=== PATIENT | female | born 1985 | race African-American/Black ===

== ENCOUNTER 2016-10-05 22:23 | Emergency (ER) | payer SELFPAY ==
--- NOTE | 2016-10-05 23:34 | ER Document Report ---
ED Medical Screen (RME) - General Stated Complaint: PSYCH EVAL Notes: 31 year old female, states she wants to be committed because of "how things are at home". She expresses recent SI and thoughts of self mutilation, reports hx of suicide attempt in 2012. She states she has not killed or hurt herself because of her family. She denies any current symptoms. On no meds. TRAVEL OUTSIDE OF THE [place] IN LAST 30 DAYS: No - Related Data Allergies/Adverse Reactions: acetaminophen [From Vicodin] Adverse Reaction (Mild, Verified 09/03/14 04:17) itching hydrocodone bitartrate [From Vicodin] Adverse Reaction (Mild, Verified 09/03/14 04:17) itching nuts Allergy (Uncoded 09/03/14 04:17) Past Medical History - Past Medical History Cardiac Medical History: Denies: Hx Hypertension, Hx Pulmonary Embolism, Hx Heart Murmur Pulmonary Medical History: Denies: Hx Asthma, Hx Sleep Apnea, Hx Tuberculosis Neurological Medical History: Denies: Hx Cerebrovascular Accident, Hx Seizures Endocrine Medical History: Denies: Hx Hyperthyroidism, Hx Hypothyroidism Renal/ Medical History: Denies: Hx Kidney Stones, Hx Ovarian Cysts, Hx Pelvic Inflammatory Disease Malignancy Medical History: Denies: Hx Breast Cancer, Hx Cervical Cancer, Hx Ovarian Cancer GI Medical History: Reports: Hx Gastroesophageal Reflux Disease. Denies: Hx Hiatal Hernia, Hx Ulcer Musculoskeltal Medical History: Denies Hx Fibromyalgia Psychiatric Medical History: Reports: Hx Anxiety, Hx Bipolar Disorder, Hx Depression Denies: Hx Post Traumatic Stress Disorder, Hx Schizophrenia Traumatic Medical History: Denies: Hx Fractures Infectious Medical History: Denies: Hx HIV Past Surgical History: Reports: Hx Section - x2. Denies: Hx Pacemaker - Immunizations Immunizations up to date: Yes Hx Diphtheria, Pertussis, Tetanus Vaccination: Yes Physical Exam - Vital signs Vitals: Temp Pulse Resp BP Pulse Ox 98.3 F 83 20 106/51 L 96 10/05/16 23:19 10/05/16 23:19 10/05/16 23:19 10/05/16 23:19 10/05/16 23:19 - Cardiovascular Rhythm: Regular. No: Tachycardia Heart sounds: Normal auscultation, S1 appreciated, S2 appreciated Course - Vital Signs Vital signs: Temp Pulse Resp BP Pulse Ox 98.3 F 83 20 106/51 L 96 10/05/16 23:19 10/05/16 23:19 10/05/16 23:19 10/05/16 23:19 10/05/16 23:19
--- NOTE | 2016-10-06 02:28 | ER Document Report ---
ED Psych Disorder / Suicide - General Time seen by provider: :27 Mode of Arrival: Ambulatory Information source: Patient TRAVEL OUTSIDE OF THE [place] IN LAST 30 DAYS: No - HPI Patient complains to provider of: Other - Depression Onset: Other - 2 months Onset was: Gradual Quality of pain: No pain Suicide Risk Factors: Depressed Normal mood: No Associated symptoms: Depressed, Flat affect Similar symptoms previously: Yes Recently seen / treated by doctor: No <SHELTON SCHROEDER - Last Filed: 10/06/16 03:43> <АЛЕКСАНДР MCDANIEL - Last Filed: 10/06/16 11:59> - General Chief Complaint: Psych Problem Stated Complaint: PSYCH EVAL - HPI Notes: Patient is a 31-year-old female who presents to the emergency room requesting mental health evaluation and treatment, patient states ever since her cousin was murdered back in August, she has not felt quite right, she has been struggling with "personal issues, she has had "random thoughts of self-harm", although denies having any thoughts to harm herself at the current time, she reports feeling empty, not eating, feeling stressed out, and has lost some weight, she is not currently in any treatment for this, she does not take any medications, she does smoke, drinks daily and smoked marijuana daily (SHELTON SCHROEDER) - Related Data Allergies/Adverse Reactions: acetaminophen [From Vicodin] Adverse Reaction (Mild, Verified 09/03/14 04:17) itching hydrocodone bitartrate [From Vicodin] Adverse Reaction (Mild, Verified 09/03/14 04:17) itching nuts Allergy (Uncoded 09/03/14 04:17) Home Medications: Current Home Medications No Home Medications 10/06/16 [History] Past Medical History - General Information source: Patient - Social History Smoking Status: Current Every Day Smoker Chew tobacco use (# tins/day): No Frequency of alcohol use: Heavy Drug Abuse: Cocaine, Marijuana Family History: Reviewed & Not Pertinent Patient has suicidal ideation: No - not currently,has in past Patient has homicidal ideation: No - not currently, has in past - Past Medical History Cardiac Medical History: Denies: Hx Hypertension, Hx Pulmonary Embolism, Hx Heart Murmur Pulmonary Medical History: Denies: Hx Asthma, Hx Sleep Apnea, Hx Tuberculosis Neurological Medical History: Denies: Hx Cerebrovascular Accident, Hx Seizures Endocrine Medical History: Denies: Hx Hyperthyroidism, Hx Hypothyroidism Renal/ Medical History: Denies: Hx Kidney Stones, Hx Ovarian Cysts, Hx Peritoneal Dialysis, Hx Pelvic Inflammatory Disease Malignancy Medical History: Denies: Hx Breast Cancer, Hx Cervical Cancer, Hx Ovarian Cancer GI Medical History: Reports: Hx Gastroesophageal Reflux Disease. Denies: Hx Hiatal Hernia, Hx Ulcer Musculoskeltal Medical History: Denies Hx Fibromyalgia Psychiatric Medical History: Reports: Hx Anxiety, Hx Bipolar Disorder, Hx Depression Denies: Hx Post Traumatic Stress Disorder, Hx Schizophrenia Traumatic Medical History: Denies: Hx Fractures Infectious Medical History: Denies: Hx HIV Past Surgical History: Reports: Hx Section - x2. Denies: Hx Pacemaker - Immunizations Immunizations up to date: Yes Hx Diphtheria, Pertussis, Tetanus Vaccination: Yes <SHELTON SCHROEDER - Last Filed: 10/06/16 03:43> Review of Systems - Review of Systems Constitutional: No symptoms reported EENT: No symptoms reported Cardiovascular: No symptoms reported Respiratory: No symptoms reported Gastrointestinal: No symptoms reported Genitourinary: No symptoms reported Female Genitourinary: No symptoms reported Musculoskeletal: No symptoms reported Skin: No symptoms reported Hematologic/Lymphatic: No symptoms reported Neurological/Psychological: See HPI -: Yes All other systems reviewed and negative <SHELTON SCHROEDER - Last Filed: 10/06/16 03:43> Physical Exam - Vital signs Interpretation: Normal <SHELTON SCHROEDER - Last Filed: 10/06/16 03:43> <АЛЕКСАНДР MCDANIEL - Last Filed: 10/06/16 11:59> - Vital signs Vitals: Temp Pulse Resp BP Pulse Ox 98.3 F 83 20 106/51 L 96 10/05/16 23:19 10/05/16 23:19 10/05/16 23:19 10/05/16 23:19 10/05/16 23:19 - Notes Notes: - General General appearance: Appears well, Alert In distress: None - HEENT Head: Normocephalic, Atraumatic Eyes: Normal Conjunctiva: Normal Extraocular movements intact: Yes Eyelashes: Normal Pupils: PERRL - Respiratory Respiratory status: No respiratory distress - Cardiovascular Rhythm: Regular - Abdominal Inspection: Normal - Back Back: Normal - Extremities General upper extremity: Normal inspection General lower extremity: Normal inspection - Neurological Neuro grossly intact: Yes Orientation: AAOx4 Melissa Coma Scale Eye Opening: Spontaneous Worthing Coma Scale Verbal: Oriented Worthing Coma Scale Motor: Obeys Commands Melissa Coma Scale Total: 15 - Psychological Associated symptoms: Depressed mood, flat affect, poor eye contact - Skin Skin Temperature: Warm Skin Moisture: Dry Skin Color: Normal (SHELTON SCHROEDER) Course - EKG Interpretation by Me EKG shows normal: Sinus rhythm Rate: Normal Rhythm: NSR <SHELTON SCHROEDER - Last Filed: 10/06/16 03:43> - Laboratory Result Diagrams: 10/06/16 03:40 10/06/16 03:40 <АЛЕКСАНДР MCDANIEL - Last Filed: 10/06/16 11:59> - Re-evaluation Re-evalutation: 10/06/16 03:38 Patient presents to the emergency room requesting mental health evaluation and treatment, she denies any active suicidal ideation or intent for self-harm, therefore she will remain in the emergency room as a voluntary patient for further evaluation and treatment by the mental health team (SHELTON SCHROEDER) - Vital Signs Vital signs: Temp Pulse Resp BP Pulse Ox 98.0 F 70 16 106/50 L 100 10/06/16 11:39 10/06/16 11:39 10/06/16 11:39 10/06/16 11:39 10/06/16 11:39 - Laboratory Laboratory results interpreted by me: 10/06/16 10/06/16 10/06/16 03:40 03:40 10:35 RDW 14.1 H Seg Neutrophils % 27.2 L Lymphocytes % 56.2 H Eosinophils % 8.6 H Urine Protein 30 H Urine Ketones TRACE H Urine Urobilinogen 4.0 H Salicylates < 1.0 L Acetaminophen < 10 L Discharge <SHELTON SCHROEDER - Last Filed: 10/06/16 03:43> <АЛЕКСАНДР MCDANIEL - Last Filed: 10/06/16 11:59> - Discharge Clinical Impression: Suicidal ideation Depression Qualifiers: Depression Type: unspecified Qualified Code(s): F32.9 - Major depressive disorder, single episode, unspecified Condition: Stable Disposition: HOME, SELF-CARE Additional Instructions: DEPRESSION: Your evaluation reveals that you have mental depression. While symptoms may be vague, they often include disturbance of sleep, fatigue, loss of appetite , and general loss of interest in life. While depression may be a side effect of drugs, or a reaction to a major change in your life, many cases have no known cause. If depression is acute, and related to a major loss in your life, you can expect it to clear completely with time. If you have been depressed a long time , are prone to repeated bouts of depression or low mood, or have been thinking of suicide, get help. Depression can be treated with anti-depressant medication and counselling. Long-term depression will often take a few weeks to clear, even with appropriate medication. Follow-up care is important. SUICIDAL IDEATION: Suicidal ideation is a common medical term for thoughts about suicide, which may be as detailed as a formulated plan, without the suicidal act itself. Although most people who undergo suicidal ideation do not commit suicide, some go on to make suicide attempts. The range of suicidal ideation varies greatly from fleeting to detailed planning, role playing, and unsuccessful attempts. While thoughts about suicide are common, most people do not carry out serious actions to commit suicide. Based upon your evaluation and discussion with you, we do not believe you are currently at risk to act upon your thoughts of suicide. You have agreed to return to the Emergency Department, at any time , if you feel inclined to act upon your suicidal thoughts. FOLLOW-UP CARE: If you have been referred to a physician for follow-up care, call the physician s office for an appointment as you were instructed or within the next two days. If you experience worsening or a significant change in your symptoms, notify the physician immediately or return to the Emergency Department at any time for re-evaluation. You are advised to follow-up at [facility] at 1 PM today. Referrals: [facility] Luis Manuel [Provider Group] - 10/06/16 1:00 pm
[2016-10-06] MEDS ORDERED: DIPHENHYDRAMINE HCL 50 MG CAPSULE PO ONE (02:56)
[2016-10-06 03:48] LABS: ABSOLUTE BASOPHILS # (AUTO) 0.1 10^3/uL (0.0-0.2); ABSOLUTE EOSINOPHILS # (AUTO) 0.6 10^3/uL (0.0-0.6); ABSOLUTE MONOCYTES (AUTO) 0.5 10^3/uL (0.1-1.4); ABSOLUTE NEUT (AUTO) 1.9 10^3/uL (1.7-8.2); BASOPHILS % (AUTO) 0.9 % (0-2); EOSINOPHILS % (AUTO) 8.6 % (0-6); HEMATOCRIT 41.2 % (36.0-47.0); HEMOGLOBIN 13.4 g/dL (12.0-15.5); LYMPHOCYTES % (AUTO) 56.2 % (13-45); MEAN CORPUSCULAR HGB CONC 32.6 g/dL (32.0-36.0); MEAN CORPUSCULAR VOLUME 86 fl (80-97); MONOCYTES % (AUTO) 7.1 % (3-13); RED BLOOD COUNT 4.78 10^6/uL (3.72-5.28); RED CELL DISTRIBUTION WIDTH 14.1 % (11.5-14.0); SEGMENTED NEUTROPHILS % (AUTO) 27.2 % (42-78); WHITE BLOOD COUNT 7.1 10^3/uL (4.0-10.5)
[2016-10-06 04:01] LABS: ALANINE AMINOTRANSFERASE 27 U/L (9-52); ALBUMIN 4.2 g/dL (3.5-5.0); ALKALINE PHOSPHATASE 65 U/L (38-126); ANION GAP 11 (5-19); ASPARTATE AMINO TRANSFERASE 14 U/L (14-36); BILIRUBIN,TOTAL 0.3 mg/dL (0.2-1.3); BLOOD UREA NITROGEN 7 mg/dL (7-20); CALCIUM 9.6 mg/dL (8.4-10.2); CARBON DIOXIDE 24 mmol/L (22-30); CHLORIDE 106 mmol/L (98-107); CREATININE RESULT 1.01 mg/dL (0.52-1.25); GLUCOSE 78 mg/dL (75-110); SODIUM 140.7 mmol/L (137-145); TOTAL PROTEIN 6.9 g/dL (6.3-8.2)
[2016-10-06 04:03] LABS: ALCOHOL < 10 mg/dL (NONE DETECTED)
--- NOTE | 2016-10-06 08:31 | EKG REPORT ---
SEVERITY:- OTHERWISE NORMAL ECG - SINUS ARRHYTHMIA, RATE [id number] : Confirmed by: Lokesh Key MD 06-Oct-2016 08:31:23
--- NOTE | 2016-10-06 08:55 | PSYCHOLOGICAL NOTE ---
Psych Note - Psych Note Psych Note: Patient presented to [facility] ED requesting mental health evaluation and treatment, patient states ever since her cousin was murdered back in August, she has not felt quite right, she has been struggling with "personal issues, she has had "random thoughts of self-harm", although denies having any thoughts to harm herself at the current time, she reports feeling empty, not eating, feeling stressed out, and has lost some weight, she is not currently in any treatment for this, she does not take any medications, she does smoke, drinks daily and smoked marijuana daily. Patient disclosed that she has not been taking any medication since May because her Medicaid was discontinued; however when she was taking her medication she did not feel "right" and thinks that she might have been on the wrong medications. Her previous provider was sees [facility]. Patient continued disclosed that she did attempt to go to [facility] however was unable to do the group therapies because of no transportation at the time. She continue disclose that she now has the vehicle and was going to go to [facility] today. Patient disclosed that she has been diagnosed with bipolar and PTSD however symptoms became overwhelming after her cousin was murdered on August 14 of this year. She continued disclosed she keeps seeing him in his casket and almost wishes that she did not attend services. She continued to disclose that she has attempted to keep together for her children however everything is a chore. 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 Patient denies suicidal or homicidal ideation but disclosed that she does have a history of self-harm. Patient denies current use of her maladaptive coping skill in self-harm. Patient's mother, Verito, stated she has concerns for the patient because she has been impulsive, defensive and argumentative. She has noticed increase in use of narcotics and feels like the patient has been moving backwards. She confirmed causing of the patient did pass away in August. She disclosed that the patient started to show symptoms about May but that it has gotten worse. Patient is alert and orientated to person place time and circumstance. Mood is dysphoric with flat affect. Patient denies suicidal homicidal ideation; does have history of self-harm for maladaptive coping skill. Patient denies auditory and visual hallucinations; no delusions are noted. Thought process is logical organized and linear. Conversational speech is low however within normal rate and prosody. Eye contact was fair. Intellectual abilities appear to be within average range. Attention and concentration are fair. Insight, judgment, impulse control are good. 296.80 (F31.9) Unspecified Bipolar and Related Disorder per history per patient 309.9 (F43.9) Unspecified truama and stressor related disorder per history per patient impression/plan: Patient is considered psychiatrically clear for discharge. Patient denies suicidal and homicidal ideation and does not meet criteria for IVC per [place] GS 122 C. Patient does have a history of self-harm however has not resorted to her maladaptive coping skill as evidenced by no new santamaria cuts or bruises observed. Patient is reaching out for assistance because of past difficulties in losing insurance and has not been going to mental health services since May. Patient did attend [facility] and is going to be following up with them today at 1:00. Patient is psychiatrically cleared for discharge attending physician is in agreement with recommendations and disposition.
[2016-10-06 10:52] LABS: APPEARANCE,URINE SLIGHTLY-CLOUDY; BILIRUBIN,URINE NEGATIVE (NEGATIVE); GLUCOSE, URINE NEGATIVE (NEGATIVE); KETONES,URINE TRACE mg/dL (NEGATIVE); LEUKOCYTE ESTERASE,URINE NEGATIVE (NEGATIVE); NITRITE,URINE NEGATIVE (NEGATIVE); PROTEIN,URINE 30 mg/dL (NEGATIVE); URINE SPECIFIC GRAVITY 1.028
[2016-10-06 11:09] LABS: URINE BARBITURATES SCREEN NEGATIVE; URINE METHADONE SCREEN NEGATIVE; URINE OPIATES LOW NEGATIVE; URINE PHENCYCLIDINE SCREEN NEGATIVE
[2016-10-06 11:40] VITALS: BP 106/50
--- NOTE | 2016-10-06 12:00 | ER Document Report ---
Doctor's Note Notes: 10/06/16 12:00 Rounds: Chart reviewed and patient was interviewed. Patient denies feeling suicidal at this time. Vital signs are all essentially normal. Lab studies are also all essentially normal. Patient appears to be medically stable for transfer or discharge. Mental health has assessed the patient feels she can be discharged for outpatient follow-up at [facility] at 1 PM today. Ricci Temple M.D.
== END 2016-10-06 11:40 | disposition home or self-care (01) ==
LOC: ER 22:23
DX: F32.9 Major depressive disorder, single episode, unspecified (principal); R45.851 Suicidal ideations; F17.200 Nicotine dependence, unspecified, uncomplicated; R63.4 Abnormal weight loss; Z68.23 Body mass index [BMI] 23.0-23.9, adult; Z91.018 Allergy to other foods
CPT/HCPCS: 36415; 80053; 80307; 81001; 84703; 85025; 93005; 93010; 99285

== ENCOUNTER 2016-10-26 13:46 | Emergency (ER) | payer SELFPAY ==
[2016-10-26 13:52] VITALS: BP 150/90
[2016-10-26] MEDS ORDERED: IBUPROFEN 800 MG TABLET PO ONE (14:08)
--- NOTE | 2016-10-26 14:10 | ER Document Report ---
ED Medical Screen (RME) - General Stated Complaint: TOOTHACHE Notes: She complains of right upper dental pain that has been going on for a while. It has gotten worse over the last few days, sensitive to hot and cold foods. I have greeted and performed a rapid initial assessment of this patient. A comprehensive ED assessment and evaluation of the patient, analysis of test results and completion of the medical decision making process will be conducted by additional ED providers. TRAVEL OUTSIDE OF THE [place] IN LAST 30 DAYS: No - Related Data Allergies/Adverse Reactions: acetaminophen [From Vicodin] Adverse Reaction (Mild, Verified 10/26/16 14:07) itching hydrocodone bitartrate [From Vicodin] Adverse Reaction (Mild, Verified 10/26/16 14:07) itching nuts Allergy (Uncoded 10/26/16 14:07) Past Medical History - Past Medical History Cardiac Medical History: Denies: Hx Hypertension, Hx Pulmonary Embolism, Hx Heart Murmur Pulmonary Medical History: Denies: Hx Asthma, Hx Sleep Apnea, Hx Tuberculosis Neurological Medical History: Denies: Hx Cerebrovascular Accident, Hx Seizures Endocrine Medical History: Denies: Hx Hyperthyroidism, Hx Hypothyroidism Renal/ Medical History: Denies: Hx Kidney Stones, Hx Ovarian Cysts, Hx Peritoneal Dialysis, Hx Pelvic Inflammatory Disease Malignancy Medical History: Denies: Hx Breast Cancer, Hx Cervical Cancer, Hx Ovarian Cancer GI Medical History: Reports: Hx Gastroesophageal Reflux Disease. Denies: Hx Hiatal Hernia, Hx Ulcer Musculoskeltal Medical History: Denies Hx Fibromyalgia Psychiatric Medical History: Reports: Hx Anxiety, Hx Bipolar Disorder, Hx Depression Denies: Hx Post Traumatic Stress Disorder, Hx Schizophrenia Traumatic Medical History: Denies: Hx Fractures Infectious Medical History: Denies: Hx HIV Past Surgical History: Reports: Hx Section - x2. Denies: Hx Pacemaker - Immunizations Immunizations up to date: Yes Hx Diphtheria, Pertussis, Tetanus Vaccination: Yes Physical Exam - Vital signs Vitals: Temp Pulse Resp BP Pulse Ox 98.5 F 99 18 150/90 H 98 10/26/16 13:51 10/26/16 13:51 10/26/16 13:51 10/26/16 13:51 10/26/16 13:51 - HEENT Teeth diagram: 1 - decayed and broken tooth. Course - Vital Signs Vital signs: Temp Pulse Resp BP Pulse Ox 98.5 F 99 18 150/90 H 98 10/26/16 13:51 10/26/16 13:51 10/26/16 13:51 10/26/16 13:51 10/26/16 13:51
--- NOTE | 2016-10-26 15:00 | ER Document Report ---
HPI - HPI Patient complains to provider of: dental pain and decay Onset: Other Onset/Duration: Gradual - A week Quality of pain: Throbbing Pain Level: 5 Context: 31-year-old female with has a partial plate is complaining of increased dental pain and decay and irritation from her partial frontal plate. No Fever or facial swelling. Associated Symptoms: None Exacerbated by: Other - Partial plate Relieved by: Denies Similar symptoms previously: No Recently seen / treated by doctor: No - ROS ROS below otherwise negative: Yes Systems Reviewed and Negative: Yes All other systems reviewed and negative - REPRODUCTIVE Reproductive: DENIES: : - DERM Skin Color: Normal Past Medical History - General Information source: Patient - Social History Smoking Status: Current Every Day Smoker Chew tobacco use (# tins/day): No Frequency of alcohol use: None Drug Abuse: None Lives with: Family Family History: Reviewed & Not Pertinent Patient has suicidal ideation: No Patient has homicidal ideation: No GI Medical History: Reports: Hx Gastroesophageal Reflux Disease Psychiatric Medical History: Reports: Hx Anxiety, Hx Bipolar Disorder, Hx Depression Past Surgical History: Reports: Hx Section - x2, Hx Pacemaker - Immunizations Immunizations up to date: Yes Hx Diphtheria, Pertussis, Tetanus Vaccination: Yes Vertical Provider Document - CONSTITUTIONAL Agree With Documented VS: Yes Exam Limitations: No Limitations - INFECTION CONTROL TRAVEL OUTSIDE OF THE [place] IN LAST 30 DAYS: No - HEENT HEENT: Atraumatic, Normocephalic Notes: few decayed teeth, hard palate behind the teeth inflamed, no abscess - NECK Neck: Supple. negative: Lymphadenopathy-Left, Lymphadenopathy-Right - RESPIRATORY Respiratory: Breath Sounds Normal, No Respiratory Distress O2 Sat by Pulse Oximetry: 98 - CARDIOVASCULAR Cardiovascular: Regular Rate, Regular Rhythm - NEURO Level of Consciousness: Awake, Alert, Appropriate - DERM Integumentary: Warm, Dry Course - Vital Signs Vital signs: Temp Pulse Resp BP Pulse Ox 98.5 F 99 18 150/90 H 98 10/26/16 13:51 10/26/16 13:51 10/26/16 13:51 10/26/16 13:51 10/26/16 13:51 Discharge - Discharge Clinical Impression: dental pain and decay Condition: Good Disposition: HOME, SELF-CARE Instructions: Penicillin V K ([facility]), Toothache ([facility]), Acetaminophen, Anti- Inflammatory Medication ([facility]), Dentist, Dental Infection or Abscess ([facility]) Additional Instructions: warm compress to er if worse see the dentist Please complete the patient satisfaction survey if you get one, and return it.. If you do not receive a survey, then you can go to the [facility] website, [email or web address] and place your comments about your very good care. Thank you very much. It was a pleasure being your medical provider today. Prescriptions: Ibuprofen [Motrin 800 mg Tablet] 800 mg PO Q8HP PRN #30 tablet PRN Reason: Penicillin V Potassium [Penicillin Vk 500 mg Tablet] 500 mg PO QID #40 tablet
== END 2016-10-26 15:28 | disposition home or self-care (01) ==
LOC: ER 13:46
DX: K08.89 Other specified disorders of teeth and supporting structures (principal); K02.9 Dental caries, unspecified; F17.200 Nicotine dependence, unspecified, uncomplicated
CPT/HCPCS: 99282

== ENCOUNTER 2016-11-21 19:20 | Emergency (ER) | payer SELFPAY ==
[2016-11-21] MEDS ORDERED: PROMETHAZINE HCL 25 MG TABLET PO ONE (19:43)
[2016-11-21] MEDS ORDERED: OXYCODONE-ACETAMINOPHEN 5-325 MG TABLET PO ONE (19:43)
--- NOTE | 2016-11-21 19:48 | ER Document Report ---
ED Medical Screen (RME) - General Chief Complaint: Abdominal Pain Stated Complaint: ABDOMINAL PIERCING PAIN Notes: Patient says that she's been having pain in her right upper quadrant since awakening this morning. She thinks the pain actually helped awaken her. The pain is been constant all day. She's been nauseated but hasn't vomited. She has had 5-6 episodes of diarrhea. It cordero when she urinates. No cough or cold or chest congestion. Unaware of any fevers. Patient has a control implant. Last cycle was September, but she is often irregular with the implant. She's had 3 C-sections but no other surgical procedures. PMH: Bipolar disorder Exam of patient while sitting in a chair in triage reveals tenderness throughout , but more so on the right side and more so at the umbilical level are slightly higher on the right side. Not the most tender over the region of the appendix at McBurney's point. TRAVEL OUTSIDE OF THE [place] IN LAST 30 DAYS: No - Related Data Allergies/Adverse Reactions: acetaminophen [From Vicodin] Adverse Reaction (Mild, Verified 10/26/16 14:07) itching hydrocodone bitartrate [From Vicodin] Adverse Reaction (Mild, Verified 10/26/16 14:07) itching nuts Allergy (Uncoded 10/26/16 14:07) Past Medical History - Past Medical History Cardiac Medical History: Denies: Hx Hypertension, Hx Pulmonary Embolism, Hx Heart Murmur Pulmonary Medical History: Denies: Hx Asthma, Hx Sleep Apnea, Hx Tuberculosis Neurological Medical History: Denies: Hx Cerebrovascular Accident, Hx Seizures Endocrine Medical History: Denies: Hx Hyperthyroidism, Hx Hypothyroidism Renal/ Medical History: Denies: Hx Kidney Stones, Hx Ovarian Cysts, Hx Peritoneal Dialysis, Hx Pelvic Inflammatory Disease Malignancy Medical History: Denies: Hx Breast Cancer, Hx Cervical Cancer, Hx Ovarian Cancer GI Medical History: Reports: Hx Gastroesophageal Reflux Disease. Denies: Hx Hiatal Hernia, Hx Ulcer Musculoskeltal Medical History: Denies Hx Fibromyalgia Psychiatric Medical History: Reports: Hx Anxiety, Hx Bipolar Disorder, Hx Depression Denies: Hx Post Traumatic Stress Disorder, Hx Schizophrenia Traumatic Medical History: Denies: Hx Fractures Infectious Medical History: Denies: Hx HIV Past Surgical History: Reports: Hx Section - x2, Hx Pacemaker - Immunizations Immunizations up to date: Yes Hx Diphtheria, Pertussis, Tetanus Vaccination: Yes
[2016-11-21] MEDS ORDERED: KETOROLAC TROMETHAMINE 60 MG/2 ML SDV IM ONE (20:23)
--- NOTE | 2016-11-21 20:23 | ER Document Report ---
ED GI/ - General Mode of Arrival: Ambulatory Information source: Patient TRAVEL OUTSIDE OF THE [place] IN LAST 30 DAYS: No - HPI Patient complains to provider of: Abdominal pain Associated symptoms: Other - See above <MARLENE GALAN - Last Filed: 11/21/16 21:47> <KIKA BRAVO - Last Filed: 11/23/16 21:10> - General Chief Complaint: Abdominal Pain Stated Complaint: ABDOMINAL PIERCING PAIN Notes: Patient is a 31 year old female, with a past medical history including bipolar disorder, who presents to the the emergency department complaining of abdominal pain that woke her up at 0830 this morning. Patient states the pain is worst in her right abdomen and is exacerbated by movement and pressure. Patient also complains of diarrhea, nausea, and mild vaginal discharge onset 2 days ago. Patient states she also had a fever of 101 earlier today and took Tylenol. Patient denies vaginal bleeding, vaginal odor, and pain with intercourse. Patient denies and states she is has a nexplanon implant although she reports she has had 4 miscarriages with the implant. PCP: [facility] (MARLENE GALAN) - Related Data Allergies/Adverse Reactions: acetaminophen [From Vicodin] Adverse Reaction (Mild, Verified 10/26/16 14:07) itching hydrocodone bitartrate [From Vicodin] Adverse Reaction (Mild, Verified 10/26/16 14:07) itching nuts Allergy (Uncoded 10/26/16 14:07) Past Medical History - General Information source: Patient - Social History Smoking Status: Unknown if Ever Smoked Family History: Reviewed & Not Pertinent Patient has suicidal ideation: No GI Medical History: Reports: Hx Gastroesophageal Reflux Disease Psychiatric Medical History: Reports: Hx Anxiety, Hx Bipolar Disorder, Hx Depression Past Surgical History: Reports: Hx Section - x2, Hx Pacemaker - Immunizations Immunizations up to date: Yes Hx Diphtheria, Pertussis, Tetanus Vaccination: Yes <MARLENE GALAN - Last Filed: 11/21/16 21:47> Review of Systems - Review of Systems Constitutional: See HPI, Fever EENT: No symptoms reported Cardiovascular: No symptoms reported Respiratory: No symptoms reported Gastrointestinal: See HPI, Abdominal pain, Diarrhea, Nausea Genitourinary: No symptoms reported Female Genitourinary: See HPI, Vaginal discharge. denies: Vaginal bleeding, Vaginal odor, Painful intercourse Musculoskeletal: No symptoms reported Skin: No symptoms reported Hematologic/Lymphatic: No symptoms reported Neurological/Psychological: No symptoms reported -: Yes All other systems reviewed and negative <MARLENE GALAN - Last Filed: 11/21/16 21:47> Physical Exam - Vital signs Interpretation: Normal - General General appearance: Appears well, Alert - HEENT Head: Normocephalic, Atraumatic - Respiratory Respiratory status: No respiratory distress Chest status: Nontender Breath sounds: Normal Chest palpation: Normal - Cardiovascular Rhythm: Regular Heart sounds: Normal auscultation Murmur: No - Abdominal Inspection: Normal Distension: No distension Bowel sounds: Normal Tenderness: Other - Patient presents with guarding before palpation and sits up with no difficulty during exam despite complaints that her pain is severe. Patient presents with diffuse pain during examinaton, and pain is out of proportion to exam. Organomegaly: No organomegaly - Extremities General upper extremity: Normal inspection, Normal ROM, Normal strength General lower extremity: Normal inspection, Normal ROM, Normal strength, Normal weight bearing - Neurological Neuro grossly intact: Yes Cognition: Normal Orientation: AAOx4 Melissa Coma Scale Eye Opening: Spontaneous [place] Coma Scale Verbal: Oriented [place] Coma Scale Motor: Obeys Commands Melissa Coma Scale Total: 15 Speech: Normal Motor strength normal: LUE, RUE, LLE, RLE - Psychological Associated symptoms: Normal affect, Normal mood - Skin Skin Temperature: Warm Skin Moisture: Dry Skin Color: Normal <MARLENE GALAN - Last Filed: 11/21/16 21:47> Course - Laboratory Result Diagrams: 11/21/16 20:35 11/21/16 20:35 <MARLENE GALAN - Last Filed: 11/21/16 21:47> - Laboratory Result Diagrams: 11/21/16 20:35 11/21/16 20:35 <KIKA BRAVO - Last Filed: 11/23/16 21:10> - Re-evaluation Re-evalutation: 11/22/16 02:18 Patient presented to the emergency department with generalized abdominal pain onset this morning associated with diarrhea. Said she's had a normal appetite. Denies any vaginal discharge bleeding or painful intercourse. States she does have a history of chlamydia. She was at the bedside with for very young children which by herself. Initially rating give her some for pain outfront that she did not have anyone for the children. On examination her pain is not consistent with her exam before a limp with the dumont the stethoscope to listen she is writhing around in pain but witnessed prior to and after taxing on the cell phone in no acute distress. I palpate her abdomen barely touch it the pain is out of proportion to physical examination no associated guarding rebound rigidity. She has a mildly elevated white blood cell count negative acute CT findings small slight urinary tract infection. Patient is positive for cocaine and marijuana. Children's services were notified in regards to the small children N of present states that it wasn't emergent that they see them tonight dental follow-up as an outpatient. This time she is to be discharge follow-up with primary care physician in 12-24 hour recheck and reevaluation and discussed reasons for ED return sooner (KIKA BRAVO) - Vital Signs Vital signs: Temp Pulse Resp BP Pulse Ox 97.7 F 64 16 102/67 99 11/22/16 02:33 11/22/16 02:33 11/22/16 02:33 11/22/16 02:33 11/22/16 02:33 - Laboratory Laboratory results interpreted by me: 11/21/16 11/21/16 20:35 21:00 WBC 16.5 H RDW 14.2 H Absolute Neutrophils 12.3 H Urine Urobilinogen 4.0 H Ur Leukocyte Esterase SMALL H Discharge <MARLENE GALAN - Last Filed: 11/21/16 21:47> <KIKA BRAVO - Last Filed: 11/23/16 21:10> - Discharge Clinical Impression: Cocaine abuse, Tetrahydrocannabinol (THC) use disorder, mild, abuse Abdominal pain Qualifiers: Abdominal location: unspecified location Qualified Code(s): R10.9 - Unspecified abdominal pain Condition: Stable Disposition: HOME, SELF-CARE Instructions: Abdominal Pain ([facility]) Additional Instructions: Abdominal Pain There are many causes of abdominal pain. Pain can mean a serious problem requiring surgery (such as appendicitis). It can also be an innocent problem that goes away on its own (such as a viral infection). Often, time must pass to determine the cause of pain. The physician does not feel that hospitalization is necessary, at present. Things may change within the next 24 hours. Call the doctor or come back for re- examination if any problems occur, such as: (1) Pain that becomes more severe, steady, or becomes concentrated in one specific area. Also, pain that is more severe with movement or coughing. (2) Vomiting that persists or becomes more frequent. (3) Blood in the vomitus, urine, or bowel movements. Blood in the stool may have a tarry or black appearance. (4) Shaking chills or fever greater than 100 degrees F. (5) The abdomen becomes more distended or swollen. (6) Bowel movements cease. (7) Failure to improve as expected. Follow-up in the emergency department for recheck and reevaluation in 12 hours return for increasing worsening or new symptoms Prescriptions: Nitrofurantoin/Nitrofuran Mac [Macrobid 100 mg Capsule] 1 tab PO BID #20 capsule Scribe Attestation: 11/23/16 21:09 i personally performed the services described in the documentation, reviewed the documentation recorded by the scribe in my presence and it accurately and completely records my words and actions. (KIKA BRAVO) Scribe Documentation - Scribe Written by Shaniqua:: shaniqua Jenkins, 11/21/16, 985 acting as scribe for :: Parker <MARLENE GALAN - Last Filed: 11/21/16 21:47>
[2016-11-21 20:46] LABS: ABSOLUTE EOSINOPHILS # (AUTO) 0.1 10^3/uL (0.0-0.6); ABSOLUTE MONOCYTES (AUTO) 1.1 10^3/uL (0.1-1.4); ABSOLUTE NEUT (AUTO) 12.3 10^3/uL (1.7-8.2); BASOPHILS % (AUTO) 0.3 % (0-2); EOSINOPHILS % (AUTO) 0.5 % (0-6); HEMATOCRIT 39.9 % (36.0-47.0); HEMOGLOBIN 12.9 g/dL (12.0-15.5); HGB HCT DIFFERENCE -1.2; LYMPHOCYTES % (AUTO) 18.2 % (13-45); MEAN CORPUSCULAR HEMOGLOBIN 27.8 pg (27.0-33.4); MEAN CORPUSCULAR HGB CONC 32.3 g/dL (32.0-36.0); MEAN CORPUSCULAR VOLUME 86 fl (80-97); MONOCYTES % (AUTO) 6.6 % (3-13); RED BLOOD COUNT 4.64 10^6/uL (3.72-5.28); RED CELL DISTRIBUTION WIDTH 14.2 % (11.5-14.0); SEGMENTED NEUTROPHILS % (AUTO) 74.4 % (42-78); WHITE BLOOD COUNT 16.5 10^3/uL (4.0-10.5)
[2016-11-21 21:09] LABS: ALANINE AMINOTRANSFERASE 29 U/L (9-52); ALKALINE PHOSPHATASE 60 U/L (38-126); ANION GAP 13 (5-19); ASPARTATE AMINO TRANSFERASE 22 U/L (14-36); BILIRUBIN,DIRECT 0.3 mg/dL (0.0-0.4); BILIRUBIN,TOTAL 0.6 mg/dL (0.2-1.3); BLOOD UREA NITROGEN 9 mg/dL (7-20); CALCIUM 9.4 mg/dL (8.4-10.2); CARBON DIOXIDE 23 mmol/L (22-30); CHLORIDE 105 mmol/L (98-107); CREATININE RESULT 0.84 mg/dL (0.52-1.25); GLUCOSE 85 mg/dL (75-110); LIPASE 37.7 U/L (23-300); POTASSIUM 4.2 mmol/L (3.6-5.0); SODIUM 140.8 mmol/L (137-145); TOTAL PROTEIN 6.9 g/dL (6.3-8.2)
[2016-11-21 21:13] LABS: APPEARANCE,URINE SLIGHTLY-CLOUDY; BILIRUBIN,URINE NEGATIVE (NEGATIVE); GLUCOSE, URINE NEGATIVE (NEGATIVE); KETONES,URINE NEGATIVE (NEGATIVE); LEUKOCYTE ESTERASE,URINE SMALL (NEGATIVE); NITRITE,URINE NEGATIVE (NEGATIVE); PROTEIN,URINE NEGATIVE (NEGATIVE); URINE SPECIFIC GRAVITY 1.012
[2016-11-21 21:27] LABS: URINE BARBITURATES SCREEN NEGATIVE; URINE METHADONE SCREEN NEGATIVE; URINE OPIATES LOW NEGATIVE; URINE PHENCYCLIDINE SCREEN NEGATIVE
[2016-11-22 02:37] VITALS: BP 102/67
== END 2016-11-22 02:38 | disposition home or self-care (01) ==
LOC: ER 19:20
DX: N39.0 Urinary tract infection, site not specified (principal); R10.84 Generalized abdominal pain; F12.10 Cannabis abuse, uncomplicated; F14.10 Cocaine abuse, uncomplicated; R19.7 Diarrhea, unspecified; R11.0 Nausea; R50.9 Fever, unspecified; D72.829 Elevated white blood cell count, unspecified; Z97.5 Presence of (intrauterine) contraceptive device; Z87.59 Personal history of other complications of pregnancy, childbirth and the puerperium; Z91.018 Allergy to other foods; Z87.19 Personal history of other diseases of the digestive system; Z95.0 Presence of cardiac pacemaker; Z86.19 Personal history of other infectious and parasitic diseases
CPT/HCPCS: 99284; 96372; 36415; 83690; 84703; 85025; 80053; 81001; 80307; 74176; J1885

== ENCOUNTER 2016-12-27 03:50 | Emergency (ER) | payer SELFPAY ==
[2016-12-27] MEDS ORDERED: BUPIVACAINE HCL 0.5%-EPI 1:200000 INJ/PF 30 ML VIAL INJ ONE (06:35)
--- NOTE | 2016-12-27 07:02 | ER Document Report ---
ED General - General Chief Complaint: Toothache Stated Complaint: TOOTHPAIN Time Seen by Provider: 12/27/16 06:20 Mode of Arrival: Ambulatory Information source: Patient Notes: 31-year-old female presents with complaints of dry socket, she had a tooth pulled 1 week ago has been smoking. Patient denies any fevers or chills nausea vomiting or diarrhea patient has taken Motrin with minimal relief TRAVEL OUTSIDE OF THE [place] IN LAST 30 DAYS: No - HPI Onset: Yesterday Onset/Duration: Persistent Quality of pain: Achy Severity: Moderate Pain Level: 3 Associated symptoms: Other Exacerbated by: Denies Relieved by: Denies Similar symptoms previously: No Recently seen / treated by doctor: Yes - Related Data Allergies/Adverse Reactions: acetaminophen [From Vicodin] Adverse Reaction (Mild, Verified 12/27/16 03:57) itching hydrocodone bitartrate [From Vicodin] Adverse Reaction (Mild, Verified 12/27/16 03:57) itching nuts Allergy (Uncoded 12/27/16 03:57) Past Medical History - Social History Smoking Status: Current Every Day Smoker Cigarette use (# per day): Yes Chew tobacco use (# tins/day): No Smoking Education Provided: Yes - Patient counselled regarding cessation for 4 minutes Frequency of alcohol use: Social Drug Abuse: None Family History: Reviewed & Not Pertinent Patient has suicidal ideation: No Patient has homicidal ideation: No - Past Medical History Cardiac Medical History: Denies: Hx Hypertension, Hx Pulmonary Embolism, Hx Heart Murmur Pulmonary Medical History: Denies: Hx Asthma, Hx Sleep Apnea, Hx Tuberculosis Neurological Medical History: Denies: Hx Cerebrovascular Accident, Hx Seizures Endocrine Medical History: Denies: Hx Hyperthyroidism, Hx Hypothyroidism Renal/ Medical History: Denies: Hx Kidney Stones, Hx Ovarian Cysts, Hx Peritoneal Dialysis, Hx Pelvic Inflammatory Disease Malignancy Medical History: Denies: Hx Breast Cancer, Hx Cervical Cancer, Hx Ovarian Cancer GI Medical History: Reports: Hx Gastroesophageal Reflux Disease. Denies: Hx Hiatal Hernia, Hx Ulcer Musculoskeltal Medical History: Denies Hx Fibromyalgia Psychiatric Medical History: Reports: Hx Anxiety, Hx Bipolar Disorder, Hx Depression Denies: Hx Post Traumatic Stress Disorder, Hx Schizophrenia Traumatic Medical History: Denies: Hx Fractures Infectious Medical History: Denies: Hx HIV Past Surgical History: Reports: Hx Section - x3, Hx Pacemaker - Immunizations Immunizations up to date: Yes Hx Diphtheria, Pertussis, Tetanus Vaccination: Yes - not UTD Review of Systems - Review of Systems Notes: PHYSICAL EXAMINATION: GENERAL: Well-appearing, well-nourished and in no acute distress. HEAD: Atraumatic, normocephalic. EYES: Pupils equal round and reactive to light, extraocular movements intact, conjunctiva are normal. ENT: Tooth number 19 removed , no abscess NECK: Normal range of motion, supple without lymphadenopathy LUNGS: Breath sounds clear to auscultation bilaterally and equal. No wheezes rales or rhonchi. HEART: Regular rate and rhythm without murmurs ABDOMEN: Soft, nontender, nondistended abdomen. No guarding, no rebound. No masses appreciated. Female : deferred Musculoskeletal: Normal range of motion, no pitting or edema. No cyanosis. NEUROLOGICAL: Cranial nerves grossly intact. Normal speech, normal gait. Normal sensory, motor exams PSYCH: Normal mood, normal affect. SKIN: Warm, Dry, normal turgor, no rashes or lesions noted. Physical Exam - Vital signs Vitals: Temp Pulse Resp BP Pulse Ox 97.7 F 68 16 139/95 H 100 12/27/16 03:55 12/27/16 03:55 12/27/16 03:55 12/27/16 03:55 12/27/16 03:55 Course - Re-evaluation Re-evalutation: 12/27/16 07:01 At patient's request a dental block was performed with complete resolution of patient's pain. I will have her follow-up with her dentist as well as do salt water gargles and obtain [id number] medication for the pain After performing a Medical Screening Examination, I estimate there is LOW risk for a DEEP SPACE INFECTION (e.g., TREVER'S ANGINA OR RETROPHARYNGEAL ABSCESS), MENINGITIS, INTRACRANIAL HEMORRHAGE, or AIRWAY COMPROMISE, thus I consider the discharge disposition reasonable. Also, there is no evidence or peritonitis, sepsis, or toxicity. I have reevaluated this patient multiple times and no significant life threatening changes are noted. The patient and I have discussed the diagnosis and risks, and we agree with discharging home with close follow-up with the understanding that symptoms and presentations can change. We also discussed returning to the Emergency Department immediately if new or worsening symptoms occur. We have discussed the symptoms which are most concerning (e.g., changing or worsening pain, trouble swallowing or breathing, neck stiffness or fever) that necessitate immediate return. - Vital Signs Vital signs: Temp Pulse Resp BP Pulse Ox 97.7 F 68 16 139/95 H 100 12/27/16 03:55 12/27/16 03:55 12/27/16 03:55 12/27/16 03:55 12/27/16 03:55 Procedures - Additional Procedures inferior alveolar nerve block Time performed: 07:00 - using 10 cc of 0.5% bupivicaine with epi complete nerve block with no complications Discharge - Discharge Clinical Impression: Dry socket, Encounter for smoking cessation counseling Condition: Stable Disposition: HOME, SELF-CARE Instructions: Toothache ([facility]) Additional Instructions: Follow up with your physician tomorrow for further care or return to the ED IMMEDIATELY if symptoms worsen or new concerns occur. If you cannot afford to follow up with your primary care physician a list of low cost clinics have been provided at the end of your discharge papers as well.
[2016-12-27 07:25] VITALS: BP 120/82
== END 2016-12-27 07:24 | disposition home or self-care (01) ==
LOC: ER 03:50
PROC: 3E0T3BZ Introduction of Anesthetic Agent into Peripheral Nerves and Plexi, Percutaneous Approach (ICD-10-PCS; principal; 2016-12-27)
DX: M27.3 Alveolitis of jaws (principal); F17.210 Nicotine dependence, cigarettes, uncomplicated; Z71.6 Tobacco abuse counseling; Z98.890 Other specified postprocedural states; Z91.018 Allergy to other foods
CPT/HCPCS: 99282; 99406

== ENCOUNTER 2017-01-04 17:00 | Emergency (ER) | payer OTHER ==
[2017-01-04] MEDS ORDERED: IBUPROFEN 600 MG TABLET PO ONE (19:03)
[2017-01-04] MEDS ORDERED: PROCHLORPERAZINE MALEATE 10 MG TABLET PO ONE (19:03)
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
--- NOTE | 2017-01-04 19:34 | RADIOLOGY REPORT (SQ) ---
EXAM DESCRIPTION: CT HEAD WITHOUT COMPLETED DATE/TIME: 01/04/2017 7:25 pm REASON FOR STUDY: posterior head injury sleeping a lot COMPARISON: None. TECHNIQUE: Axial images acquired through the brain without intravenous contrast. Images reviewed wi th bone, brain and subdural windows. Images stored on PACS. All CT scanners at this facility use dose modulation, iterative reconstruction, and/or weight based d osing when appropriate to reduce radiation dose to as low as reasonably achievable (ALARA). [facility]: Dose Right [facility]: CareDose [facility]: Dose Right [facility]: Teradose 4D [facility]: [employer] Direct RADIATION DOSE: 64.61 mGy. LIMITATIONS: None. FINDINGS: VENTRICLES: Normal size and contour. CEREBRUM: No masses. No hemorrhage. No midline shift. Normal garcia/white matter differentiation. N o evidence for acute infarction. CEREBELLUM: No masses. No hemorrhage. No alteration of density. No evidence for acute infarction. EXTRAAXIAL SPACES: No fluid collections. No masses. ORBITS AND GLOBE: No intra- or extraconal masses. Normal contour of globe without masses. CALVARIUM: No fracture. PARANASAL SINUSES: No fluid or mucosal thickening. SOFT TISSUES: No mass or hematoma. OTHER: No other significant finding. IMPRESSION: NORMAL BRAIN CT WITHOUT CONTRAST. TECHNICAL DOCUMENTATION: JOB ID: [id number] Quality ID # [id number]: Final reports with documentation of one or more dose reduction techniques (e.g., Au tomated exposure control, adjustment of the mA and/or kV according to patient size, use of iterative reconstruction technique) 2010 [employer]- All Rights Reserved
[2017-01-04 20:54] VITALS: BP 125/74
== END 2017-01-04 20:54 | disposition home or self-care (01) ==
LOC: ER 17:00
DX: S09.90XA Unspecified injury of head, initial encounter (principal); R42 Dizziness and giddiness; W22.8XXA Striking against or struck by other objects, initial encounter; Y99.0 Civilian activity done for income or pay; Z88.6 Allergy status to analgesic agent; Z91.018 Allergy to other foods
CPT/HCPCS: 99284; 70450; S0183

== ENCOUNTER 2018-03-20 12:31 | Emergency (ER) | payer MEDICAID, OTHER ==
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
[2018-03-20 14:02] LABS: ABSOLUTE EOSINOPHILS # (AUTO) 0.1 10^3/uL (0.0-0.6); ABSOLUTE LYMPHOCYTES (AUTO) 1.6 10^3/uL (0.5-4.7); ABSOLUTE MONOCYTES (AUTO) 1.1 10^3/uL (0.1-1.4); ABSOLUTE NEUT (AUTO) 5.4 10^3/uL (1.7-8.2); BASOPHILS % (AUTO) 0.5 % (0-2); EOSINOPHILS % (AUTO) 1.6 % (0-6); HEMOGLOBIN 11.4 g/dL (12.0-15.5); LYMPHOCYTES % (AUTO) 19.3 % (13-45); MEAN CORPUSCULAR HEMOGLOBIN 28.1 pg (27.0-33.4); MEAN CORPUSCULAR HGB CONC 33.4 g/dL (32.0-36.0); MEAN CORPUSCULAR VOLUME 84 fl (80-97); MONOCYTES % (AUTO) 13.3 % (3-13); PLATELET COUNT 367 10^3/uL (150-450); RED BLOOD COUNT 4.04 10^6/uL (3.72-5.28); RED CELL DISTRIBUTION WIDTH 14.5 % (11.5-14.0); SEGMENTED NEUTROPHILS % (AUTO) 65.3 % (42-78); TOTAL CELLS COUNTED % (AUTO) 100 %; WHITE BLOOD COUNT 8.3 10^3/uL (4.0-10.5)
[2018-03-20 14:12] LABS: APPEARANCE,URINE CLEAR; BILIRUBIN,URINE NEGATIVE (NEGATIVE); COLOR,URINE YELLOW; GLUCOSE, URINE NEGATIVE (NEGATIVE); KETONES,URINE NEGATIVE (NEGATIVE); LEUKOCYTE ESTERASE,URINE TRACE (NEGATIVE); NITRITE,URINE NEGATIVE (NEGATIVE); PROTEIN,URINE NEGATIVE (NEGATIVE); URINE SPECIFIC GRAVITY 1.016
[2018-03-20 14:21] LABS: ANION GAP 11 (5-19); BLOOD UREA NITROGEN 8 mg/dL (7-20); CALCIUM 9.8 mg/dL (8.4-10.2); CARBON DIOXIDE 25 mmol/L (22-30); CHLORIDE 103 mmol/L (98-107); GLUCOSE 83 mg/dL (75-110); POTASSIUM 4.2 mmol/L (3.6-5.0); SODIUM 138.8 mmol/L (137-145)
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
--- NOTE | 2018-03-20 15:51 | RADIOLOGY REPORT (SQ) ---
EXAM DESCRIPTION: U/S OB TRANSVAGINAL W/O DOP COMPLETED DATE/TIME: 03/20/2018 3:38 pm REASON FOR STUDY: bleeding COMPARISON: None. TECHNIQUE: Transvaginal static and realtime grayscale images acquired of the pelvis. Additional gutierrez cted spectral and color Doppler images recorded. All images stored on PACs. bHCG: Not available. CLINICAL DATES: EGA LIMITATIONS: None. FINDINGS: There is a 1.4 x 0.5 x 00.6 cm subchorionic hemorrhage. Intrauterine with pole measuring 1 cm. No cardiac activity. Cervix measures 3.0 cm. IMPRESSION: demise at 7 weeks. EGA 7 weeks 2 days. Trimester of : First - 0 to 13 weeks. TECHNICAL DOCUMENTATION: JOB ID: [id number] [employer]- All Rights Reserved rev-12/23 Reading location - IP/workstation name: [email or web address]
[2018-03-20 16:42] VITALS: BP 115/71
== END 2018-03-20 16:42 | disposition home or self-care (01) ==
LOC: ER 12:31
DX: O03.9 Complete or unspecified spontaneous abortion without complication (principal); Z91.018 Allergy to other foods
CPT/HCPCS: 36415; 76817; 80048; 81001; 84702; 85025; 86900; 86901; 99284

== ENCOUNTER 2018-03-29 11:13 | Day surgery (SDC) | payer MEDICAID ==
[2018-03-29] MEDS ORDERED: CEFAZOLIN 1 GM/D5W RTU 1 GM/50 ML RTUPB IV ONE (12:57)
[2018-03-29 14:18] LABS: HEMATOCRIT 22.1 % (36.0-47.0); MEAN CORPUSCULAR HEMOGLOBIN 27.6 pg (27.0-33.4); MEAN CORPUSCULAR HGB CONC 33.1 g/dL (32.0-36.0); MEAN CORPUSCULAR VOLUME 83 fl (80-97); RED BLOOD COUNT 2.65 10^6/uL (3.72-5.28); RED CELL DISTRIBUTION WIDTH 14.3 % (11.5-14.0); WHITE BLOOD COUNT 9.2 10^3/uL (4.0-10.5)
[2018-03-29 14:42] LABS: HEMOGLOBIN 7.3 g/dL (12.0-15.5); PLATELET COUNT 299 10^3/uL (150-450)
[2018-03-29] MEDS ORDERED: ONDANSETRON HCL INJ/PF 4 MG/2 ML SDV ONE (14:59)
[2018-03-29] MEDS ORDERED: MIDAZOLAM 2 MG/2 ML INJ ONE (14:59)
[2018-03-29] MEDS ORDERED: FENTANYL CITRATE INJ/PF 100 MCG/2 ML AMPUL ONE ×2 (14:59→16:07)
[2018-03-29] MEDS ORDERED: PROPOFOL INJ 200 MG/20 ML VIAL IV ONE ×2 (15:00→15:22)
[2018-03-29] MEDS ORDERED: PROMETHAZINE HCL INJ 25 MG/1 ML VIAL IV PRN ×2 (15:28)
[2018-03-29] MEDS ORDERED: FENTANYL CITRATE INJ/PF 100 MCG/2 ML AMPUL IV PRN ×3 (15:28)
[2018-03-29] MEDS ORDERED: MEPERIDINE HCL/PF INJ 25 MG/1 ML DISP.SYRIN IV PRN (15:28)
[2018-03-29] MEDS ORDERED: DIPHENHYDRAMINE HCL 50 MG/ML VIAL IV PRN (15:28)
[2018-03-29] MEDS ORDERED: RINGERS SOLUTION,LACTATED 1,000 ML IV PRN (15:54)
[2018-03-29] MEDS ORDERED: OXYCODONE-ACETAMINOPHEN 5-325 MG TABLET PO PRN ×2 (15:55→15:57)
[2018-03-29] MEDS ORDERED: PROMETHAZINE HCL INJ 25 MG/1 ML VIAL ONE (16:14)
[2018-03-29] MEDS ORDERED: MORPHINE SULFATE 10 MG/ML INJ IM PRN (16:15)
[2018-03-29] MEDS ORDERED: IBUPROFEN 800 MG TABLET PO PRN (16:15)
[2018-03-29 18:02] VITALS: BP 103/54
[2018-03-30] MEDS ORDERED: CEFAZOLIN 1 GM/D5W RTU 1 GM/50 ML RTUPB IV PRN (05:00)
--- NOTE | 2018-06-15 16:31 | OPERATIVE REPORT E ---
Operative Report NAME: SANJUANITA MCPHERSON : 1985 AGE: 32Y DATE OF SURGERY: 03/29/2018 ROOM: PREOPERATIVE DIAGNOSIS: INCOMPLETE AB. POSTOPERATIVE DIAGNOSIS: INCOMPLETE AB. OPERATION: Dilatation and curettage. SURGEON: EDWIGE BABB M.D. ANESTHESIA: Dr. Hutchins with LMAC. FINDINGS: Moderate amount of products of conception still within the uterine cavity. The uterus sounded to approximately 14 cm. COMPLICATIONS: None. ESTIMATED BLOOD LOSS: 50 mL TISSUE REMOVED OR ALTERED: Products of conception. PROCEDURE: The patient was taken to the operating room, prepared and draped in the normal sterile fashion in a dorsal lithotomy position. Under sterile conditions, in and out catheterization was performed of approximately 20 mL of clear urine. A sterile speculum was placed into the vagina and the anterior lip of the cervix was grasped with a single-tooth tenaculum. The uterus was then sounded to approximately 14 cm and the cervix was dilated to accommodate an 8 mm curved curette. This was done without difficulty. The curette was then introduced and a gentle suction curettage was performed with moderate tissue obtained. The suction curette was removed and a sharp curettage was performed with a Kevorkian curette with good 360 degrees of grit felt within the uterus. The Kevorkian was removed and the suction was introduced once more. The uterus was adequately emptied. The procedure was then concluded. The speculum was removed from the vagina. All instruments were accounted for, and the patient was taken to recovery in stable condition. DICTATING PHYSICIAN: EDWIGE BABB M.D. [id number] PHY#: [id number] ID: [id number] JOB#: [id number] ACCT: [id number] cc:EDWIGE BABB M.D. >
== END 2018-03-29 17:50 | disposition home or self-care (01) ==
LOC: OROUT 11:13
PROVIDERS: ATTEND Obstetrics & Gynecology
DX: O02.1 Missed abortion (principal); Z87.891 Personal history of nicotine dependence
CPT/HCPCS: 86900; 86901; 36415; 86850; 85027; 88305 ×2; 59820; J2250; J0690; J3490; J3010; J2550; J2405; J2704; 1965

== ENCOUNTER → 2018-05-01 | Outpatient (CLI) | payer MEDICAID ==
--- NOTE | 2018-05-01 14:50 | RADIOLOGY REPORT (SQ) ---
EXAM DESCRIPTION: MRI CERVICAL SPINE WITHOUT COMPLETED DATE/TIME: 05/01/2018 12:08 pm REASON FOR STUDY: FRACTURE OF NECK, UNSPECIFIED, SEQUELA (S12.9XXS) S12.9XXS FRACTURE OF NECK, UNSP ECIFIED, SEQUELA COMPARISON: None. TECHNIQUE: Sagittal and Axial imaging includes T1, T2, STIR and gradient echo sequences. LIMITATIONS: Motion. FINDINGS: ALIGNMENT: Normal. VERTEBRAE: Intact. BONE MARROW: Normal. No marrow replacement or reactive changes. DISCS: Desiccation multiple levels. HARDWARE: None in the spine. CORD AND BASE OF BRAIN: Normal in size and signal intensity. SOFT TISSUES: No soft tissue masses. C1-C2: No significant spinal stenosis. C2-C3: No significant spinal stenosis or exit foraminal stenosis. C3-C4: No significant spinal stenosis or exit foraminal stenosis. C4-C5: No significant spinal stenosis or exit foraminal stenosis. C5-C6: Small right paracentral disc herniation indenting the thecal sac. C6-C7: Small central herniation indenting the ventral margin of the thecal sac. C7-T1: No significant spinal stenosis or exit foraminal stenosis. UPPER THORACIC: Incompletely imaged. No significant spinal stenosis or exit foraminal stenosis. OTHER: No other significant finding. IMPRESSION: Small disc herniations at C5- 6 and C6-7. TECHNICAL DOCUMENTATION: JOB ID: [id number]- All Rights Reserved Reading location - IP/workstation name: [email or web address]
== END ==
LOC: RAD 10:08
PROVIDERS: ATTEND Neurological Surgery
DX: S12.9XXS Fracture of neck, unspecified, sequela (principal); M50.223 Other cervical disc displacement at C6-C7 level; X58.XXXS Exposure to other specified factors, sequela
CPT/HCPCS: 72141

== ENCOUNTER 2018-10-03 12:23 | Emergency (ER) | payer MEDICAID ==
[2018-10-03] MEDS ORDERED: IBUPROFEN 800 MG TABLET PO ONE (12:51)
[2018-10-03] MEDS ORDERED: ACETAMINOPHEN 325 MG TABLET PO ONE (12:59)
--- NOTE | 2018-10-03 13:01 | ER Document Report ---
HPI - HPI Time Seen by Provider: 10/03/18 12:59 Pain Level: 3 Notes: Patient is a 33-year-old 16 week female who presents to the ED complaining of nasal congestion/discharge, dry nonproductive cough, fever, body ache 1 day. Patient states that she is still eating and drinking without difficulties, but does have a decreased p.o. intake. She is still urinating normally having normal bowel movements. Patient has been using some [id number] meds for symptoms. She denies any significant past medical history including cardiopulmonary history and immunocompromised conditions. + smoker. Denies any current headache, neck pain, sore throat, chest pain, palpitations, syncope, shortness of breath, wheeze, dyspnea, abdominal pain, nausea/vomiting/diarrhea, urinary retention, dysuria, hematuria, or rash. Children have same symptoms as well. - ROS Systems Reviewed and Negative: Yes All other systems reviewed and negative - CONSTITUTIONAL Constitutional: REPORTS: Fever, Chills - NEURO Neurology: REPORTS: Headache. DENIES: Weakness, Vision blurred, Dizzinesss / Vertigo - CARDIOVASCULAR Cardiovascular: DENIES: Chest pain - RESPIRATORY Respiratory: REPORTS: Coughing. DENIES: Trouble Breathing - GASTROINTESTINAL Gastrointestinal: DENIES: Abdominal Pain, Black / Bloody Stools - URINARY Urinary: DENIES: Dysuria, Urgency, Frequency - REPRODUCTIVE Reproductive: REPORTS: : - MUSCULOSKELETAL Musculoskeletal: DENIES: Extremity pain Past Medical History - Social History Smoking Status: Current Every Day Smoker Chew tobacco use (# tins/day): No Frequency of alcohol use: None Drug Abuse: None Family History: CVA, DM, Hyperlipidemia, Hypertension, Thyroid Disfunction Patient has suicidal ideation: No Patient has homicidal ideation: No - Past Medical History Cardiac Medical History: Denies: Hx Coronary Artery Disease, Hx Heart Attack, Hx Hypertension, Hx Pulmonary Embolism, Hx Heart Murmur Pulmonary Medical History: Denies: Hx Asthma, Hx Bronchitis, Hx COPD, Hx Pneumonia, Hx Sleep Apnea, Hx Tuberculosis Neurological Medical History: Denies: Hx Cerebrovascular Accident, Hx Seizures Endocrine Medical History: Denies: Hx Hyperthyroidism, Hx Hypothyroidism Renal/ Medical History: Denies: Hx Kidney Stones, Hx Ovarian Cysts, Hx Peritoneal Dialysis, Hx Pelvic Inflammatory Disease Malignancy Medical History: Denies: Hx Breast Cancer, Hx Cervical Cancer, Hx Ovarian Cancer GI Medical History: Reports: Hx Gastroesophageal Reflux Disease. Denies: Hx Hiatal Hernia, Hx Ulcer Musculoskeletal Medical History: Denies Hx Arthritis, Denies Hx Fibromyalgia Psychiatric Medical History: Reports: Hx Anxiety, Hx Bipolar Disorder, Hx Depression Denies: Hx Post Traumatic Stress Disorder, Hx Schizophrenia Traumatic Medical History: Denies: Hx Fractures Infectious Medical History: Denies: Hx HIV Past Surgical History: Reports: Hx Section - x3, Hx Pacemaker - Immunizations Immunizations up to date: Yes Hx Diphtheria, Pertussis, Tetanus Vaccination: Yes Vertical Provider Document - CONSTITUTIONAL Agree With Documented VS: Yes Notes: PHYSICAL EXAMINATION: GENERAL: Well-appearing, well-nourished and in no acute distress. A&Ox4. Answers questions appropriately. Moves comfortably w/o notable distress HEAD: Atraumatic, normocephalic. EYES: Pupils equal round and reactive to light, extraocular movements intact, sclera anicteric, conjunctiva are normal. ENT: EAC clear b/l. TM's intact b/l without erythema, fluid, or perforation. Nares patent and with clear discharge. oropharynx no erythema without exudates. No tonsilar hypertrophy without erythema or exudate. No palatine shift. Uvula midline. No tongue protrusion. No drooling, hoarseness, or airway compromise. Moist mucous membranes. No sinus tenderness. NECK: Normal range of motion, supple without lymphadenopathy. No rigidity/meningismus. LUNGS: Breath sounds clear to auscultation bilaterally and equal. No wheezes rales or rhonchi. No retractions HEART: Regular rate and rhythm without murmurs, rubs, gallops. ABDOMEN: Soft, nontender, nondistended abdomen. No guarding, no rebound. Normal bowel sounds present. No CVA tenderness bilaterally. NEUROLOGICAL: Normal speech, normal gait. PSYCH: Normal mood, normal affect. SKIN: Warm, Dry, normal turgor, no rashes or lesions noted. - INFECTION CONTROL TRAVEL OUTSIDE OF THE [place] IN LAST 30 DAYS: No Course - Re-evaluation Re-evalutation: 10/03/18 13:35 Patient is an afebrile, well-hydrated, 33-year-old female who presents to the ED with acute URI, suspect influenza. Vitals are acceptable. PE is otherwise unremarkable. Influenza test was negative, but I clinically suspect influenza based on her H&P. I did review with Dr. Leigh who recommends covering with tamiflu. No other labs or imaging warranted at this time based on H&P. Patient has no significant cardiopulmonary or immunocompromised medical conditions. Patient's lungs are clear to auscultation bilaterally without tachycardia, hypoxia, or tachypnea. Patient is tolerating p.o. without any difficulties. Thoroughly reviewed the risks, benefits, potential side effects, estimated cost without insurance with patient. After thorough review, patient requested/accepted Tamiflu at this time. Low suspicion for any meningitis, sepsis, peritonsillar/pharyngeal abscess, respiratory compromise, severe dehydration, or other emergent systemic condition at this time. Patient is aware this condition can change from initial presentation and she needs to monitor symptoms closely. Conservative measures otherwise for symptoms. Recheck with your PCM in 3-5 days. Return to the ED with any worsening/concerning symptoms otherwise as reviewed in discharge. Patient is in agreement. - Vital Signs Vital signs: Temp Pulse Resp BP Pulse Ox 99.9 F 107 H 18 129/76 H 100 10/03/18 12:46 10/03/18 12:46 10/03/18 12:46 10/03/18 12:46 10/03/18 12:46 Discharge - Discharge Clinical Impression: Acute URI Condition: Stable Disposition: HOME, SELF-CARE Instructions: Upper Respiratory Illness ([facility]) Additional Instructions: Maintain adequate fluid intake Take meds as directed tylenol/ibuprofen as needed over the counter cold medication as needed for symptoms Humidified air may help Wash your hands regularly Wear a mask when coughing F/u: with your PCM in 3-5 days for a recheck Return to the ED with any fever, worsening pain, chest pain, palpitations, syncope, worsening [place]D, neck pain/stiffness, shortness of breath, wheezing, drooling, trouble swallowing/breathing, abdominal pain, n/v/d, rash, or worsening/concerning symptoms otherwise. Prescriptions: Oseltamivir Phosphate [Tamiflu 75 mg Capsule] 75 mg PO BID #10 capsule Forms: Elevated Blood Pressure Referrals: JUAN MANUEL SAMANO PA [Primary Care Provider] - Follow up as needed
[2018-10-03 13:31] LABS: A TYPE INFLUENZA AG NEGATIVE (NEGATIVE)
[2018-10-03 13:32] LABS: B INFLUENZA AG NEGATIVE (NEGATIVE)
[2018-10-03 13:49] VITALS: BP 98/53
== END 2018-10-03 14:08 | disposition home or self-care (01) ==
LOC: ER 12:23
DX: O99.512 Diseases of the respiratory system complicating pregnancy, second trimester (principal); J06.9 Acute upper respiratory infection, unspecified; O26.892 Other specified pregnancy related conditions, second trimester; R09.81 Nasal congestion; R09.89 Other specified symptoms and signs involving the circulatory and respiratory systems; R05 Cough; R50.9 Fever, unspecified; M79.10 Myalgia, unspecified site; R63.0 Anorexia; R51 Headache; O99.332 Smoking (tobacco) complicating pregnancy, second trimester; Z3A.16 16 weeks gestation of pregnancy
CPT/HCPCS: 99283; 87804; J3490